=== PATIENT | female | born 1990 | race Caucasian/White ===

== ENCOUNTER 2019-08-22 14:56 | Emergency (ER) | payer OTHER ==
[2019-08-22 15:49] LABS: BILIRUBIN,URINE NEGATIVE (NEGATIVE); GLUCOSE, URINE (UA) NEGATIVE (NEGATIVE); KETONES,URINE (UA) NEGATIVE (NEGATIVE); LEUKOCYTE ESTERASE, URINE NEGATIVE (NEGATIVE); NITRITE,URINE NEGATIVE (NEGATIVE); OCCULT BLOOD,URINE SMALL (NEGATIVE); PH,URINE 7.5 PH (5.0-7.5); PROTEIN,URINE NEGATIVE (NEGATIVE); UROBILINOGEN,URINE 0.2 (NORMAL) E.U./dL (NORMAL)
[2019-08-22 15:52] LABS: CLARITY,URINE CLOUDY (CLEAR)
[2019-08-22 15:59] LABS: AMORPHOUS SEDIMENT,UR Moderate /LPF; BACTERIA,URINE Rare /HPF (None Seen); MUCUS,URINE Few Strands; SQUAMOUS EPITHELIAL CELL,UR MANY Squamous (<= Few)
[2019-08-22 16:15] LABS: BASOPHILS # (AUTO) 0.1 10^3/uL (0.0-0.1); BASOPHILS % (AUTO) 0.3 %; EOSINOPHILS % (AUTO) 0.1 %; HGB - HEMOGLOBIN 12.1 g/dL (12.0-16.0); LYMPHOCYTES % (AUTO) 6.2 %; MEAN CORPUSCULAR HGB CONC 33.8 g/dL (32.0-36.0); MEAN CORPUSCULAR VOLUME 94.7 fL (81.0-99.0); MEAN PLATELET VOLUME 9.6 fL (7.9-10.8); MONOCYTES # (AUTO) 0.8 10^3/uL (0.0-1.0); MONOCYTES % (AUTO) 5.1 %; NEUTROPHILS # (AUTO) 13.5 10^3/uL (1.5-6.6); NEUTROPHILS % (AUTO) 87.8 %; PLT - PLATELET COUNT 153 10^3/uL (130-450); RED BLOOD COUNT 3.78 10^6/uL (4.20-5.40); RED CELL DISTRIBUTION WIDTH 13.6 % (12.0-15.0); WHITE BLOOD COUNT 15.4 x10^3/uL (4.8-10.8)
[2019-08-22 16:44] LABS: ALBUMIN 3.3 g/dL (3.2-5.5); ALBUMIN/GLOBULIN RATIO 1.1 (1.0-2.2); BILIRUBIN,TOTAL 0.4 mg/dL (0.2-1.0); CALCIUM 8.7 mg/dL (8.5-10.3); CREATININE 0.6 mg/dL (0.4-1.0); TOTAL PROTEIN 6.2 g/dL (6.7-8.2)
[2019-08-22] MEDS ORDERED: SODIUM CHLORIDE 0.9% 1,000 ML IV ONE (16:56)
[2019-08-22] MEDS ORDERED: HYDROmorphone 1 MG/ML CARPUJECT IVP STA ×2 (16:56→18:28)
[2019-08-22] MEDS ORDERED: ONDANSETRON 4 MG/2 ML VIAL IVP STA ×2 (16:56→18:28)
--- NOTE | 2019-08-22 16:58 | ED Physician Documentation ---
PD HPI ABD PAIN - Stated complaint Stated Complaint: R SIDE BACK/ABD PX - Chief complaint Chief Complaint: Abd Pain - History obtained from History obtained from: Patient, Family - History of Present Illness Timing - onset: Enter time (1030), Today Timing - duration: Hours Timing - details: Abrupt onset, Still present Quality: Aching, Sharp, Pain Location: RUQ Radiation: Right flank Improved by: Other (nothing) Worsened by: Other (nothing) Associated symptoms: Nausea. No: Fever, Vomiting, Diarrhea, Constipation Similar symptoms before: Has not had sx before Recently seen: Other - Additional information Additional information: 28-year-old female who is 31 weeks has developed acute right flank pain radiating into her abdomen at about 1030 this morning. She has no modifying factors for this pain she is not able to make it better or worse. She has been over to the obstetrical department for monitoring and is now brought to the emergency department for further evaluation and treatment. She has never had kidney stone previously that she is aware of. The remainder of the has gone well. Review of Systems Constitutional: denies: Fever Eyes: denies: Decreased vision Ears: denies: Ear pain Nose: denies: Congestion Throat: denies: Sore throat Cardiac: denies: Chest pain / pressure, Palpitations Respiratory: denies: Dyspnea, Cough GI: reports: Abdominal Pain, Nausea. denies: Vomiting, Constipation, Diarrhea : denies: Dysuria, Frequency Skin: denies: Rash Musculoskeletal: denies: Neck pain, Back pain Neurologic: denies: Generalized weakness, Focal weakness, Numbness PD PAST MEDICAL HISTORY - Present Medications Home Medications: Ambulatory Orders Medication Instructions Recorded Confirmed Ondansetron Odt [Zofran] 4 mg TL Q6H PRN #10 tablet 08/22/19 Oxycodone HCl/Acetaminophen 1 - 2 each PO Q6H PRN #14 tablet 08/22/19 [Percocet 5-325 mg Tablet] - Allergies Allergies/Adverse Reactions: Allergies Allergy/AdvReac Type Severity Reaction Status Date / Time No Known Drug Allergies Allergy Verified 08/22/19 15:09 PD ED PE NORMAL - Vitals Vital signs reviewed: Yes (Wide pulse pressure) - General General: Alert and oriented X 3, Well developed/nourished, Other (The patient appears to be in pain with meat seafood associate tone and flattened affect.) - HEENT HEENT: Atraumatic, PERRL, EOMI - Neck Neck: Supple, no meningeal sign - Cardiac Cardiac: RRR, No murmur - Respiratory Respiratory: No respiratory distress, Clear bilaterally - Abdomen Abdomen: Other (Gravid uterus is nontender. There is no specific tenderness to the flank or abdomen.) - Back Back: No CVA TTP, No spinal TTP - Derm Derm: Normal color, Warm and dry, No rash - Extremities Extremities: No deformity, No edema, No calf tenderness / cord - Neuro Neuro: Alert and oriented X 3, obstetrics tech 2-12 intact, No motor deficit, No sensory deficit, Normal speech Eye Opening: Spontaneous Motor: Obeys Commands Verbal: Oriented GCS Score: 15 - Psych Psych: Normal mood Results - Vitals Vitals: Vital Signs - 24 hr 08/22/19 08/22/19 15:07 15:09 Temperature 36.9 C 36.6 C Heart Rate 80 97 Respiratory 19 18 Rate Blood Pressure 122/59 L 107/63 O2 Saturation 100 100 Oxygen O2 Source Room air - Labs Labs: Laboratory Tests 08/22/19 08/22/19 08/22/19 15:20 16:10 16:10 WBC 15.4 H RBC 3.78 L Hgb 12.1 Hct 35.8 L MCV 94.7 MCH 32.0 H MCHC 33.8 RDW 13.6 Plt Count 153 MPV 9.6 Neut # (Auto) 13.5 H Lymph # (Auto) 1.0 L [place] # (Auto) 0.8 Eos # (Auto) 0.0 Baso # (Auto) 0.1 Absolute Nucleated RBC 0.00 Nucleated RBC % 0.0 Sodium 137 Potassium 3.7 Chloride 105 Carbon Dioxide 22 Anion Gap 10.0 BUN 11 Creatinine 0.6 Estimated GFR (MDRD) 118 Glucose 106 H Calcium 8.7 Total Bilirubin 0.4 AST 18 ALT 14 Alkaline Phosphatase 51 Total Protein 6.2 L Albumin 3.3 Globulin 2.9 Albumin/Globulin Ratio 1.1 Lipase 25 Urine Color YELLOW Urine Clarity CLOUDY Urine pH 7.5 Ur Specific [place] 1.015 Urine Protein NEGATIVE Urine Glucose (UA) NEGATIVE Urine Ketones NEGATIVE Urine Occult Blood SMALL H Urine Nitrite NEGATIVE Urine Bilirubin NEGATIVE Urine Urobilinogen 0.2 (NORMAL) Ur Leukocyte Esterase NEGATIVE Urine RBC 6-10 H Urine WBC 4-5 Ur Squamous Epith Cells MANY Squamous H Amorphous Sediment Moderate Urine Bacteria Rare Urine Mucus Few Strands Ur Microscopic Review INDICATED Urine Culture Comments NOT INDICATED Procedures - Bedside sono Bedside sono by EMP: With these bedside ultrasound the right kidney is imaged there is obvious and impressive hydronephrosis present. The kidney is sonographically nontender there is no perinephric fluid. PD MEDICAL DECISION MAKING - ED course Complexity details: reviewed results, re-evaluated patient, considered differential, d/w patient, d/w family ED course: 28-year-old female with signs and symptoms consistent with acute ureteral lithiasis arrives to the emergency department in pain and she has some obvious and impressive hydronephrosis on bedside ultrasound exam. She is administered a liter of saline a milligram of Dilaudid and 4 mg of Zofran intravenously. The obstetrical unit has done some monitoring and they are requesting we do a transvaginal ultrasound measurement of the cervical length. Departure - Departure Disposition: 01 Home, Self Care Clinical Impression: Ureterolithiasis Condition: Stable Instructions: ED Stone Renal W Colic Follow-Up: Nathan Reyes MD [Physician No Access] - Prescriptions: Ondansetron Odt [Zofran] 4 mg TL Q6H PRN #10 tablet PRN Reason: Nausea / Vomiting Oxycodone HCl/Acetaminophen [Percocet 5-325 mg Tablet] 1 - 2 each PO Q6H PRN #14 tablet PRN Reason: pain
[2019-08-22 18:44] VITALS: BP 118/79
== END 2019-08-22 18:50 | disposition home or self-care (01) ==
LOC: ED 14:56
DX: O99.89 Other specified diseases and conditions complicating pregnancy, childbirth and the puerperium (principal); N13.2 Hydronephrosis with renal and ureteral calculous obstruction; Z3A.00 Weeks of gestation of pregnancy not specified
CPT/HCPCS: 36415; 80053; 81001; 83690; 85025; 96361; 96374; 96376; 99284; J1170; 81003; 87086

== ENCOUNTER 2019-11-27 08:00 | Outpatient (CLI) | payer OTHER ==
[2019-11-27 21:49] LABS: TRICHOMONAS VAGINALIS DNA NEGATIVE (NEGATIVE)
== END 2019-11-27 23:59 | disposition home or self-care (01) ==
LOC: LAB.R 08:00
PROVIDERS: ATTEND Obstetrics & Gynecology
DX: Z36.85 Encounter for antenatal screening for Streptococcus B (principal)
CPT/HCPCS: 87491; 87591; 87661; 87797

== ENCOUNTER 2019-12-19 05:25 | Inpatient (IN) | payer OTHER ==
[2019-12-19] MEDS ORDERED: ceFAZolin 2 GM in SODIUM CHLORIDE 0.9% 100ML 100 ML IV ONE (06:22)
[2019-12-19] MEDS ORDERED: ACETAMINOPHEN 1,000 MG/100 ML 100 ML IV ONE ×2 (06:30→14:27)
[2019-12-19] MEDS ORDERED: LACTATED RINGERS 1,000 ML IV SCH ×2 (07:00→17:00)
[2019-12-19] MEDS: SODIUM CHLORIDE FLUSH 0.9% 10 ML SYRINGE IVP PRN ×2 (07:50→20:19)
[2019-12-19 08:38] LABS: BASOPHILS % (AUTO) 0.4 %; EOSINOPHILS % (AUTO) 0.2 %; HGB - HEMOGLOBIN 12.7 g/dL (12.0-16.0); LYMPHOCYTES # (AUTO) 1.5 10^3/uL (1.5-3.5); LYMPHOCYTES % (AUTO) 14.2 %; MEAN CORPUSCULAR HEMOGLOBIN 33.1 pg (27.0-31.0); MEAN CORPUSCULAR HGB CONC 35.1 g/dL (32.0-36.0); MEAN CORPUSCULAR VOLUME 94.3 fL (81.0-99.0); MEAN PLATELET VOLUME 11.6 fL (7.9-10.8); MONOCYTES # (AUTO) 0.8 10^3/uL (0.0-1.0); MONOCYTES % (AUTO) 7.2 %; PLT - PLATELET COUNT 141 10^3/uL (130-450); RED BLOOD COUNT 3.84 10^6/uL (4.20-5.40); RED CELL DISTRIBUTION WIDTH 13.8 % (12.0-15.0); WHITE BLOOD COUNT 10.4 x10^3/uL (4.8-10.8)
--- NOTE | 2019-12-19 13:25 | ANESTHESIA ---
Pre-Anesthesia VS, & Labs - Diagnosis previous c/s, desires sterilization - Procedure repeat c/s with bilateral salpingectomies Vital Signs: Temp Pulse Resp BP Pulse Ox 36.7 C 72 18 122/85 H 12/19/19 08:08 12/19/19 08:08 12/19/19 08:08 12/19/19 08:08 Height 5 ft 1 in Weight (kg) 67.585 kg Body Mass Index 23.0 - NPO Last Food Intake: 399 - Is Patient ?: Yes - Lab Results Current Lab Results: Laboratory Tests 12/19/19 09:15: Blood Type Recheck A POSITIVE 12/19/19 07:50: Blood Type A POSITIVE, Antibody Screen NEGATIVE 12/19/19 07:50: WBC 10.4, RBC 3.84 L, Hgb 12.7, Hct 36.2 L, MCV 94.3, MCH 33.1 H , MCHC 35.1, RDW 13.8, Plt Count 141, MPV 11.6 H, Neut # (Auto) 8.0 H, Lymph # (Auto) 1.5, [place] # (Auto) 0.8, Eos # (Auto) 0.0, Baso # (Auto) 0.0, Absolute Nucleated RBC 0.00, Nucleated RBC % 0.0 Fish Bones: 12/19/19 07:50 Home Medications and Allergies Active Medications Lactated Ringer's (Lr) 1,000 mls @ 150 mls/hr IV .Q6H40M CONTRERAS Last Admin: 12/19/19 08:00 Dose: 150 mls/hr Documented by: Sodium Chloride (Normal Saline Flush 0.9%) 10 ml IVP PRN PRN PRN Reason: NEEDED PER PROVIDER ORDERS Last Admin: 12/19/19 07:50 Dose: 10 ml Documented by: PNV, acyclovir Allergies/Adverse Reactions: Allergies Allergy/AdvReac Type Severity Reaction Status Date / Time No Known Drug Allergies Allergy Verified 08/22/19 15:09 Anes History & Medical History - Anesthetic History Family history of Anesthesia Complications: Denies Family history of Malignant Hyperthermia: Denies - Medical History Cardiovascular: reports: None Pulmonary: reports: None Gastrointestinal: reports: GERD (during preg.) Urinary: reports: Kidney stones (during preg.) Neuro: reports: None Musculoskeletal: reports: None Endocrine/Autoimmune: reports: None Blood Disorders: reports: None Skin: reports: None Smoking Status: Former smoker (quit 3 years ago) Psychosocial: reports: No issues indicated - Obstetrical History : 2 Parity: 1 Events: positive: Genital herpes (treated) Complications: positive: None Exam General: Alert, Oriented x3, Cooperative, No acute distress Dental: WNL Mouth Openin Fingerbreadth Neck Mobility: Normal Mallampati classification: II Thyromental Distance: 4-6 cm Respiratory: Lungs clear, Normal breath sounds, No respiratory distress, No accessory muscle use Cardiovascular: Regular rate, Normal S1, Normal S2, No murmurs Mental/Cognitive Status: Alert/Oriented X3, Normal for patient Plan Anesthesia Type: Spinal Consent for Procedure(s) Verified and Reviewed: Yes Code Status: Attempt Resuscitation ASA classification: 2-Mild systemic disease Is this case an emergency?: No
[2019-12-19] MEDS ORDERED: LIDOCAINE 1%-EPI 1:100000 20 ML MDV ONE (14:26)
[2019-12-19] MEDS ORDERED: fentaNYL 100 MCG/2 ML VIAL EPI ONE (14:27)
[2019-12-19] MEDS ORDERED: PHENYLEPHRINE 10 MG/ML VIAL IV ONE (14:27)
[2019-12-19] MEDS ORDERED: KETOROLAC 30 MG/ML VIAL IVP ONE (14:27)
[2019-12-19] MEDS ORDERED: MORPHINE PF 10 MG/10 ML AMP EPI ONE (14:27)
[2019-12-19] MEDS ORDERED: TRANEXAMIC ACID 1,000 MG/10 ML VIAL IV ONE (14:27)
--- NOTE | 2019-12-19 14:29 | HISTORY & PHYSICAL EXAMINATION ---
Admit History - Visit Reason Visit Reason: Other (Repeat ) - : 2 Parity: 1 Risk/History: positive: None Complications This : positive: None Smoking Status: Former smoker (quit 3 years ago) - Mother's Labs Mother's Blood Type: positive: A Mother's RH: positive: Positive GBS: positive: Group B Strep Positive Rubella Status: positive: Immune - Other Maternal History Other Maternal History: 29 yo at 39w3d here for repeat CS and BTL. Signed [facility] consents in advance of 30 days on 09/28/19 DATING : US on 05/19/2020 at 8w5d gives VÍCTOR 12/23/2019--> not cwd Def dating 12/23/2019 Girl- Angela A pos/ Rub imm IS neg FAS 82%ile, posterior, 3VC Glucola 127 HCT 33.2 HSV: needs ppx at 36 wga TDap complete FLu complete Pap 05/18/19 Breast pump Rx provided GBS pos Desires rLTCS Desires BTL: signed [facility] consents 09/28/19 Meds/Allgy - Home Medications Home Medications: Ambulatory Orders Medication Instructions Recorded Confirmed Ondansetron Odt [Zofran] 4 mg TL Q6H PRN #10 tablet 08/22/19 Oxycodone HCl/Acetaminophen 1 - 2 each PO Q6H PRN #14 tablet 08/22/19 [Percocet 5-325 mg Tablet] - Allergies Allergies/Adverse Reactions: Allergies Allergy/AdvReac Type Severity Reaction Status Date / Time No Known Drug Allergies Allergy Verified 08/22/19 15:09 Review of Systems - Other Findings Other Findings: As per HPI, otherwise remaining systems are negative. Physical - Abdominal Exam Vital Signs: Temp Pulse Resp BP Pulse Ox 98.1 F 72 18 122/85 H 12/19/19 08:08 12/19/19 08:08 12/19/19 08:08 12/19/19 08:08 Contraction Frequency (min/apart): intermittent Contraction Intensity: positive: Mild - Monitoring Heart Rate Baseline: 135 mod viktoriya 15x15 accels no decels Strip Review: positive: Category I - Presentation Presentation: positive: Vertex - Vaginal Exam Membranes: positive: Membranes intact Plan for Labor - Plan For Labor Plan for Labor: 29 yo at 39w3d here for scheduled repeat CS and BTL Confirmed desire for repeat CS Reviewed R/B/A to procedure and written informed consent was obtained Delay in procedure due to oral intake this am COVID negative in last 72 hours Cefazolin 2 g IV OCTOR Anticipate admission to in-patient care Rh pos/Rub imm
[2019-12-19] MEDS ORDERED: LACTATED RINGERS 1,000 ML IV ONE (14:54)
[2019-12-19] MEDS ORDERED: LIDOCAINE 1%-EPI 1:100000 20 ML MDV SUBQ ONE ×2 (14:59)
[2019-12-19] MEDS ORDERED: ONDANSETRON 4 MG/2 ML VIAL IVP PRN (16:50)
[2019-12-19] MEDS ORDERED: ONDANSETRON ODT 4 MG TABLET TL PRN (16:50)
[2019-12-19] MEDS ORDERED: SODIUM CHLORIDE FLUSH 0.9% 10 ML SYRINGE IVP PRN (16:50)
--- NOTE | 2019-12-19 16:55 | OPERATIVE REPORT ---
Operative Report - General Admit Date: 12/19/19 Procedure Date: 12/19/19 Planned Procedure: Repeat low transverse and bilateral salpingectomy Pre-Op Diagnosis: IUP at 39+3 wga, hx of prior , desires sterilization Procedure Performed: Low transverse bilateral salpingectomy Post Op Diagnosis: Same and delivery of term gestation - Procedure Note Primary Surgeon: Harmony Gaviria MD Secondary Surgeon: Beatriz Mac CNM Anesthesia Provider: Ashley Rees CRNA Anesthesia Technique: Spinal Pathology: Bilateral fallopian tubes to pathology Routine discard of placenta IV Fluids (mL): 600 Estimated Blood Loss (mL): 700 Urine Output (mL): 100 Indications: Patient is a 29-year-old G2, P1 at 39+3 weeks estimated gestational age here for repeat and sterilization via bilateral salpingectomy. Findings: Female infant in vertex presentation with tight nuchal cord x3. Weight and Apgars are pending. Normal uterus, tubes, and ovaries. Extension on right lateral aspect of the uterine incision, repaired. Complications: None - Other Other Information/Narrative: Risks benefits and alternatives of the procedure were discussed. Written informed consent was obtained. Patient was taken to the operating room where spinal anesthesia was placed and found to be adequate. She was prepped and draped in the usual sterile fashion in the dorsal supine position with a leftward tilt. Dean catheter was in place. SCDs were in place and activated. Cefazolin 2 g IV was given as a preoperative antibiotic. Preoperative timeout was performed. A Pfannenstiel incision was made in the skin with a scalpel and carried through the underlying layer of fascia in a combination of sharp and blunt dissection. The fascia was incised in the midline, and the incision was extended laterally with the Razo scissors. The superior aspect of the fascial incision was grasped with the Josh clamps, elevated, and the underlying rectus muscles were dissected off bluntly and sharply using the Razo scissors. Attention was then turned to the inferior aspect of the incision which in a similar fashion was grasped, tented up with Josh clamps, and the underlying rectus muscles dissected off bluntly and sharply using Razo scissors. The rectus muscles were then in the midline. The peritoneum was identified, tented up, and entered bluntly. The peritoneal incision was extended superiorly and inferiorly with good visualization of the bladder. The bladder that blade was then inserted. A bladder flap was not created. The lower uterine segment of the uterus was identified, and incised in a transverse fashion with a scalpel. The uterus was entered bluntly. The uterine incision was extended in a craniocaudal fashion by manual stretch. The bladder blade was removed. The was delivered from from vertex position. Triple nuchal cord was reduced once infant head was delivered while body remained in utero. Baby was wrapped in a warm sterile towel. Delayed cord clamping was performed. After cessation of pulsations, the cord was clamped x2 and cut. The infant was handed off to the waiting pediatricians. The placenta was removed with manual expression. The uterus was exteriorized and cleared of all clots clots and debris via manual swipe using [employer] x2. The uterine incision was then repaired in a running locked fashion using 0 Vicryl suture. The incision was reinforced with a running imbricating layer again using 0-Vicryl suture. A right sided extension of the hysterotomy was noted prior to closure of the hysterotomy. Care was taken to close the extension while manually retracting ureter and vessels from area of repair. Excellent hemostasis was obtained. Attention was then turned to the salpingectomy. The left fallopian tube was grasped with [place] clamps and elevated. A Ligasure device was used to seal and transect the underlying mesosalpinx along the length of the tube to its insertion into the cornua. The Ligasure was then used to seal and transect the tube at its insertion point on the uterine cornua. Good hemostasis was noted. The procedure was reported on the right side in the same manner. Again, good hemostasis was noted. Fallopian tubes were removed from the field and sent to Pathology for review. The uterus was returned to the abdomen. The gutters were cleared of all clots and debris. The pelvis was irrigated with warm normal saline. The uterine defect was well visualized in normal anatomic position it was noted again to be hemostatic. The peritoneum was then reapproximated with 2-0 Vicryl in a running fashion. The rectus muscles were then reapproximated using interrupted [id number] sutures using 2-0 Chromic. Good hemostasis was noted. The fascia was then closed using 0 Vicryl in a running fashion starting from the left lateral edge to the midline. A second suture was used to close the fascia in a running fashion starting from the right lateral edge and meeting in the midline, again using 0-Vicryl. The subcutaneous tissue was then irrigated and closed using 2-0 chromic in a running subcutaneous suture. Skin was closed in a running subcuticular suture using 4-0 Monocryl. A total of 20 cc of 1% lidocaine with epinephrine was injected into the suture line. Patient has generalized oozing from surgical surfaces and tranexamic acid was given although EBL was appropriate. Steri-Strips were applied to reinforce the incsion and dressing was applied. Procedure was well-tolerated and without complication. Sponge lap and needle counts were correct x2. Patient was taken to recovery room in stable condition. Beatriz Mac CNM, assisted with retraction and delivery of the .
[2019-12-19] MEDS ORDERED: SODIUM CHLORIDE FLUSH 0.9% 10 ML SYRINGE IVP SCH (17:00)
[2019-12-19] MEDS ORDERED: OXYTOCIN/SODIUM CHLORIDE 500 ML IV ONE (17:20)
[2019-12-19] MEDS ORDERED: OXYTOCIN/SODIUM CHLORIDE 500 ML IV PRN (18:05)
[2019-12-19] MEDS: KETOROLAC 30 MG/ML VIAL IVP SCH ×2 (20:18→20:29)
[2019-12-20] MEDS: DOCUSATE SODIUM 100 MG CAPSULE PO SCH ×3 (00:35→20:32)
[2019-12-20] MEDS: ACETAMINOPHEN 500 MG TABLET PO SCH ×4 (00:35→16:36)
[2019-12-20] MEDS: KETOROLAC 30 MG/ML VIAL IVP SCH ×3 (02:38→14:36)
[2019-12-20] MEDS: SODIUM CHLORIDE FLUSH 0.9% 10 ML SYRINGE IVP PRN (02:39)
[2019-12-20 06:03] LABS: BASOPHILS % (AUTO) 0.4 %; EOSINOPHILS % (AUTO) 0.3 %; LYMPHOCYTES # (AUTO) 1.2 10^3/uL (1.5-3.5); LYMPHOCYTES % (AUTO) 11.6 %; MEAN CORPUSCULAR HEMOGLOBIN 33.5 pg (27.0-31.0); MEAN CORPUSCULAR HGB CONC 35.5 g/dL (32.0-36.0); MEAN CORPUSCULAR VOLUME 94.5 fL (81.0-99.0); MEAN PLATELET VOLUME 11.3 fL (7.9-10.8); MONOCYTES # (AUTO) 0.6 10^3/uL (0.0-1.0); MONOCYTES % (AUTO) 6.2 %; NEUTROPHILS # (AUTO) 8.1 10^3/uL (1.5-6.6); NEUTROPHILS % (AUTO) 80.8 %; PLT - PLATELET COUNT 126 10^3/uL (130-450); RED BLOOD COUNT 3.28 10^6/uL (4.20-5.40); RED CELL DISTRIBUTION WIDTH 13.4 % (12.0-15.0); WHITE BLOOD COUNT 10.1 x10^3/uL (4.8-10.8)
[2019-12-20] MEDS: SIMETHICONE CHEW 80 MG TABLET PO SCH ×4 (08:33→18:09)
--- NOTE | 2019-12-20 12:17 | PROVIDER PROGRESS NOTE ---
Subjective - Subjective Subjective: POD 1 Feeling well. Ambulating, jorden reg diet, voiding. Scant lochia. Pain well cont rolled. VSS afeb H&H 31.0/11.0 Abd soft, non-tender. Fundus firm at umbilicus. Dressing D&I without erythema or induration. Small area of dark blood stain at left margin. No evidence of new or active bleeding. A/P Stable. Continue routine postop care. Plan DC tomorrow. Objective - Vital Signs/Intake & Output Vital Signs: Vital Signs x48h Temp Pulse Resp BP Pulse Ox 12/20/19 07:57 98.1 F 70 16 116/48 L 99 12/20/19 05:00 75 16 100 Intake & Output: Intake & Output 12/17/19 12/18/19 12/19/19 12/20/19 23:59 23:59 23:59 23:59 Intake Total 100 1750 Output Total 130 2755 Balance -30 -1005 - Lab Results Fish Bones: 12/20/19 05:55 Other Labs: Lab Results x24hrs 12/20/19 Range/Units 05:55 WBC 10.1 (4.8-10.8) x10^3/uL RBC 3.28 L (4.20-5.40) 10^6/uL Hgb 11.0 L (12.0-16.0) g/dL Hct 31.0 L (37.0-47.0) % MCV 94.5 (81.0-99.0) fL MCH 33.5 H (27.0-31.0) pg MCHC 35.5 (32.0-36.0) g/dL RDW 13.4 (12.0-15.0) % Plt Count 126 L (130-450) 10^3/uL MPV 11.3 H (7.9-10.8) fL Neut # (Auto) 8.1 H (1.5-6.6) 10^3/uL Lymph # (Auto) 1.2 L (1.5-3.5) 10^3/uL [place] # (Auto) 0.6 (0.0-1.0) 10^3/uL Eos # (Auto) 0.0 (0.0-0.7) 10^3/uL Baso # (Auto) 0.0 (0.0-0.1) 10^3/uL Absolute Nucleated RBC 0.00 x10^3/uL Nucleated RBC % 0.0 /100WBC
--- NOTE | 2019-12-20 13:00 | PROVIDER PROGRESS NOTE ---
Subjective - Prog Note Date Prog Note Date: 12/20/19 Prog Note Time: 12:24 - Subjective Subjective: Patient is doing remarkably well. BF is going well. Pain well controlled without use of narcotics. Up and ambulating, tolerating po. Voiding. Objective - Vital Signs/Intake & Output Reviewed Vital Signs: Yes Vital Signs: Vital Signs x48h Temp Pulse Resp BP Pulse Ox 12/20/19 12:26 97.9 F 80 18 110/59 L 98 12/20/19 07:57 98.1 F 70 16 116/48 L 99 12/20/19 05:00 75 16 100 Intake & Output: Intake & Output 12/17/19 12/18/19 12/19/19 12/20/19 23:59 23:59 23:59 23:59 Intake Total 100 1750 Output Total 130 2755 Balance -30 -1005 - Objective General Appearance: positive: No acute distress Respiratory: positive: No respiratory distress, Breath sounds nml Cardiovascular: positive: Regular rate & rhythm Abdomen: positive: Non-tender, Other (FF below umbi.) Skin: positive: Color nml Extremities: positive: Non-tender, Nml appearance Neurologic/Psychiatric: positive: Oriented x3 - Lab Results Fish Bones: 12/20/19 05:55 Other Labs: Lab Results x24hrs 12/20/19 Range/Units 05:55 WBC 10.1 (4.8-10.8) x10^3/uL RBC 3.28 L (4.20-5.40) 10^6/uL Hgb 11.0 L (12.0-16.0) g/dL Hct 31.0 L (37.0-47.0) % MCV 94.5 (81.0-99.0) fL MCH 33.5 H (27.0-31.0) pg MCHC 35.5 (32.0-36.0) g/dL RDW 13.4 (12.0-15.0) % Plt Count 126 L (130-450) 10^3/uL MPV 11.3 H (7.9-10.8) fL Neut # (Auto) 8.1 H (1.5-6.6) 10^3/uL Lymph # (Auto) 1.2 L (1.5-3.5) 10^3/uL [place] # (Auto) 0.6 (0.0-1.0) 10^3/uL Eos # (Auto) 0.0 (0.0-0.7) 10^3/uL Baso # (Auto) 0.0 (0.0-0.1) 10^3/uL Absolute Nucleated RBC 0.00 x10^3/uL Nucleated RBC % 0.0 /100WBC Assessment/Plan - Problem List (1) delivery delivered Impression: POD#1: -Doing well postop -Up and ambulating -Tolerating po -Voiding -Bleeding well controlled -BF going well Anticipate DC home in the am Will remove dressing in am Reviewed DC instructions and aftercare DC meds placed on chart Rh pos
[2019-12-20] MEDS: oxyCODONE 5 MG TABLET PO PRN ×2 (13:47→18:09)
[2019-12-20] MEDS: IBUPROFEN 600 MG TABLET PO SCH (20:32)
[2019-12-20] MEDS ORDERED: HYDROCORTISONE 1% CREAM 28 GM TUBE TOP SCH (21:00)
[2019-12-21] MEDS: ACETAMINOPHEN 500 MG TABLET PO SCH ×2 (00:19→08:34)
[2019-12-21] MEDS: oxyCODONE 5 MG TABLET PO PRN ×3 (00:20→08:48)
[2019-12-21] MEDS: IBUPROFEN 600 MG TABLET PO SCH ×2 (04:15→10:26)
--- NOTE | 2019-12-21 06:17 | PROVIDER PROGRESS NOTE ---
Subjective - Prog Note Date Prog Note Date: 12/21/19 Prog Note Time: 06:14 - Subjective Subjective: POD 2 Feeling very well. Ambulating, voiding, tolerating reg diet. Minimal lochia. Had concern about BM; longstanding chronic intermittent constipation and abnormal stool. going well. S/P salpingectomy for contraception. VSS afeb Abd soft, non-tender. Fundus firm just below umbilicus. Incision D&I, dressing in place. No erythema or induration. Ext without edema A/P Stable. Planning DC home today. F/U scheduled on 12/26. Objective - Vital Signs/Intake & Output Vital Signs: Vital Signs x48h Temp Pulse Resp BP Pulse Ox 12/21/19 04:05 97.3 F L 99 18 125/74 100 12/21/19 00:23 98.1 F 97 16 110/68 98 Intake & Output: Intake & Output 12/18/19 12/19/19 12/20/19 12/21/19 23:59 23:59 23:59 23:59 Intake Total 100 1750 Output Total 130 2755 Balance -30 -1007 - Lab Results Fish Bones: 12/20/19 05:55
[2019-12-21 08:21] VITALS: BP 122/86
[2019-12-21] MEDS: SIMETHICONE CHEW 80 MG TABLET PO SCH (08:34)
[2019-12-21] MEDS: DOCUSATE SODIUM 100 MG CAPSULE PO SCH (08:34)
--- NOTE | 2019-12-21 10:13 | Discharge Plan ---
Discharge Plan Problem Reviewed?: Yes Disposition: Home, Self Care Condition: Good Diet: Regular Activity Restrictions: Additional Comments (No heavy lifting >10 pounds) Shower Restrictions: No No Smoking: If you smoke, Please STOP! Call for help. Follow-up with: Patricia Marcos MD [Primary Care Provider] -
--- NOTE | 2019-12-21 10:18 | DISCHARGE SUMMARY ---
"Discharge Summary Admit Date: 12/19/19 Discharge Date: 12/21/19 Discharging Provider: Leslie Reeder Code Status: Attempt Resuscitation Condition at Discharge: Good Discharge Disposition: 01 Home, Self Care - DIAGNOSES Admission Diagnoses: at 39w3d Previous Undesired fertility - HPI History of Present Illness: 29yo now P2 at 39w3d by LMP c/w first trimester US presented for scheduled repeat and bilateral salpingectomy - CONSULTS | PROCEDURES Procedures: Repeat LTCS and bilateral salpingectomy - HOSPITAL COURSE Hospital Course: Pt was brought to the operating room where she underwent uncomplicated repeat LTCS and bilateral salpingectomy. She was delivered of a 3833gm female infant apgars 9/9 on 12/18. EBL was 700cc. Postop H&H was 11.0/31.0. Her postop course was uncomplicated. She had minimal lochia, was ambulating, tolerating a regular diet, voiding and well. Her incision was noted to be healing well without evidence of infection. F/U will be in one week for wound check. - ALLERGIES Allergies/Adverse Reactions: Allergies Allergy/AdvReac Type Severity Reaction Status Date / Time No Known Drug Allergies Allergy Verified 08/22/19 15:09 - MEDICATIONS Home Medications: Ambulatory Orders Medication Instructions Recorded Confirmed Ondansetron Odt [Zofran] 4 mg TL Q6H PRN #10 tablet 08/22/19 Oxycodone HCl/Acetaminophen 1 - 2 each PO Q6H PRN #14 tablet 08/22/19 [Percocet 5-325 mg Tablet] - PHYSICAL EXAM AT DISCHARGE General Appearance: positive: No acute distress, Alert Respiratory: positive: No respiratory distress Cardiovascular: positive: Regular rate & rhythm Abdomen: positive: Non-tender, No distention (Fundus just below umbilicus, firm. Dressing D&I without erythema or induration) - LABS Result Diagrams: 12/20/19 05:55"
--- NOTE | 2019-12-21 10:59 | Labor Flowsheet ---
Labor Flowsheet Datetime Report Generated by CPN: 12/21/2019 10:59 Datetime: 12/19/2019 21:00 VAGINAL EXAM Membranes Ruptured Date/Time: 12/19/2019 15:15 Membranes Rupture Method: Artificial Datetime: 12/19/2019 12:27 UTERINE ACTIVITY Monitor Mode: External Frequency (min): irregular Quality: Mild Duration (sec): 70-80 Pattern: Normal: <= 5 Contractions in 10 Minutes Resting Tone (Palpate): Relaxed Contraction Comments: pt. states "I can barely feel them." ASSESSMENT A Monitor Mode: External US FHR Baseline Rate : 130 Variability: Moderate 6-25 bpm Accelerations: 15X15 Decelerations: None Category: Category I Datetime: 12/19/2019 12:04 Stage of : Labor PATIENT CARE Patient Position/Activity: High Fowlers Datetime: 12/19/2019 08:26 VITAL SIGNS NBP Sys/Krista/Mean (mmHg): 122 : 85 : 93 Pulse: 72
== END 2019-12-21 10:49 | disposition home or self-care (01) | DRG 785 ==
LOC: FBP 05:25
PROVIDERS: ADMIT Obstetrics & Gynecology; ATTEND Obstetrics & Gynecology
PROC: 0UT70ZZ Resection of Bilateral Fallopian Tubes, Open Approach (ICD-10-PCS; 2019-12-19)
PROC: 10D00Z1 Extraction of Products of Conception, Low, Open Approach (ICD-10-PCS; principal; 2019-12-19 08:30)
DX: O34.211 Maternal care for low transverse scar from previous cesarean delivery (principal); O69.1XX0 Labor and delivery complicated by cord around neck, with compression, not applicable or unspecified; O99.824 Streptococcus B carrier state complicating childbirth; Z37.0 Single live birth; Z30.2 Encounter for sterilization; Z3A.39 39 weeks gestation of pregnancy; Z87.891 Personal history of nicotine dependence
CPT/HCPCS: 36415; 85025; 86850; 86900; 86901; A9270; J0131; J2274; J7120

== ENCOUNTER 2023-06-21 08:00 | Outpatient (CLI) | payer OTHER ==
[2023-06-22 15:18] LABS: BACTERIAL VAGINOSIS DNA POSITIVE (NEGATIVE); CANDIDA GLABRATA DNA NEGATIVE (NEGATIVE); CANDIDA GROUP DNA NEGATIVE (NEGATIVE); CANDIDA KRUSEI DNA NEGATIVE (NEGATIVE); TRICHOMONAS VAGINALIS DNA NEGATIVE (NEGATIVE)
== END 2023-06-21 23:59 | disposition home or self-care (01) ==
LOC: LAB 08:00
PROVIDERS: ATTEND Physician Assistant Medical
DX: L29.2 Pruritus vulvae (principal)
CPT/HCPCS: 81514

== ENCOUNTER 2023-10-12 10:35 | Outpatient (CLI) | payer OTHER ==
[2023-10-12 23:16] LABS: CHLAMYDIA TRACHOMATIS DNA NEGATIVE (NEGATIVE); NEISSERIA GONORRHOEAE DNA NEGATIVE (NEGATIVE)
[2023-10-13 01:43] LABS: BACTERIAL VAGINOSIS DNA POSITIVE (NEGATIVE); CANDIDA GLABRATA DNA NEGATIVE (NEGATIVE); CANDIDA GROUP DNA NEGATIVE (NEGATIVE); CANDIDA KRUSEI DNA NEGATIVE (NEGATIVE); TRICHOMONAS VAGINALIS DNA NEGATIVE (NEGATIVE)
== END 2023-10-12 13:47 | disposition home or self-care (01) ==
LOC: LAB.N 10:35
PROVIDERS: ATTEND Registered Nurse
DX: N89.8 Other specified noninflammatory disorders of vagina (principal); R30.0 Dysuria
CPT/HCPCS: 81514; 87086; 87491; 87591; 87661

== ENCOUNTER 2023-10-21 09:00 | Outpatient (CLI) | payer OTHER ==
[2023-10-21 15:49] LABS: BACTERIAL VAGINOSIS DNA NEGATIVE (NEGATIVE); CANDIDA GLABRATA DNA NEGATIVE (NEGATIVE); CANDIDA GROUP DNA NEGATIVE (NEGATIVE); CANDIDA KRUSEI DNA NEGATIVE (NEGATIVE); TRICHOMONAS VAGINALIS DNA NEGATIVE (NEGATIVE)
== END 2023-10-21 09:15 | disposition home or self-care (01) ==
LOC: LAB.N 09:00
PROVIDERS: ATTEND Physician Assistant Medical
DX: N89.8 Other specified noninflammatory disorders of vagina (principal)
CPT/HCPCS: 81514

== ENCOUNTER 2023-10-22 07:17 | Emergency (ER) | payer OTHER ==
--- NOTE | 2023-10-22 07:32 | ED Physician Documentation ---
PD HPI FEMALE - Stated complaint Stated Complaint: ABD PX - Chief complaint Chief Complaint: Abd Pain - History obtained from History obtained from: Patient - History of Present Illness Timing - onset: How many weeks ago (2) Timing - duration: Weeks (2) Timing - details: Gradual onset (onset of pain after retal and vaginal inercourse 2 weeks ago. Vaginal ntecourse since has been painful. Denies pain with defecation nor wiping. Has had some mild vag discharge that hs decreased.) Associated symptoms: Other (LMP about 3 weeks ago). No: Fever, Vaginal bleeding Contributing factors: Sexually active (single partner). No: , control Similar symptoms before: Diagnosis (Dx with BV recently and treated without improvement in pain. Unsure if that was cause.) Recently seen: Clinic (seen walk in about 10 days ago and then again yesterday. Had vaginal test showing BV and was Rx for that from Walk In. Repeat visit yesterday had repeat BV test. Consider US and was to follow up PCP. US not ordered. 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, Tubal ligation - Present Medications Home Medications: Ambulatory Orders Medication Instructions Recorded Confirmed HYDROcod/ACETAM 5/325 [Hay 5/325] 1 ea PO Q6H PRN #14 tablet 10/22/23 Ondansetron Odt [Zofran] 4 mg TL Q6H PRN #10 tablet 10/22/23 - Allergies Allergies/Adverse Reactions: Allergies Allergy/AdvReac Type Severity Reaction Status Date / Time No Known Drug Allergies Allergy Verified 10/22/23 07:28 - Social History Does the pt smoke?: No Smoking Status: Never smoker Does the pt drink ETOH?: Yes Does the pt have substance abuse?: No - Immunizations Immunizations are current?: Yes - POLST Patient has POLST: No PD ED PE NORMAL - Vitals Vital signs reviewed: Yes - General General: Alert and oriented X 3, Well developed/nourished, Other (appears in pain LLQ/pelvic area. ) - Abdomen Abdomen: Normal bowel sounds, Soft, Non distended, No organomegaly, Other (tender ) - Female Female : Deferred - Rectal Rectal: Deferred - Back Back: No CVA TTP - Derm Derm: Normal color, Warm and dry Results - Vitals Vitals: Oxygen O2 Source Room air - Labs Labs: Laboratory Tests 10/22/23 07:44 Urine Color YELLOW Urine Clarity CLEAR Urine pH 6.5 Ur Specific Bulan 1.020 Urine Protein NEGATIVE Urine Glucose (UA) NEGATIVE Urine Ketones NEGATIVE Urine Occult Blood NEGATIVE Urine Nitrite NEGATIVE Urine Bilirubin NEGATIVE Urine Urobilinogen 0.2 (NORMAL) Ur Leukocyte Esterase NEGATIVE Ur Microscopic Review NOT INDICATED Urine Culture Comments NOT INDICATED Urine HCG, Qual NEGATIVE - Rads (name of study) pelvic US Relevant Findings:: Prelim report reviewed, Other (Tech verbal report of simple left ovarian cyst 3 cm without free fluid and it does have normal ovarian blood flow. ) PD Medical Decision Making - ED course Complexity details: reviewed results (Has small ovarian cyst 3 cm. Normal flow to ovary. No other acute findings. Consider possible that cyst is hitting nerve/muscle/etc at times of the worse pain and then hurting otherwise. But is not that large per se. Consider intermittent torsion, though no edema or such around it.), considered differential (no rectal pain nor discharge, nor painful BMs. Does not sound proctitis. Her pain is left pelvic. Consider persistent BV and will check repeat test from yesterday. Get US to eval for other cause. ), d/w patient, d/w healthcare network pricing consultant (phone consult with Dr. Carrillo and to treat with NSAIDs, if just ovarian cyst, then likely will regress with upcoming menses. return precautions if persistent/severe pain c/w torsion. Otherwise f/u if persists. ) Reviewed Lab Results: repeat BV test from yesterday is negative, so apparent clearance with recent abx treatment and thus not sounding like cause of the pain. US showing 3 cm cyst simple. No free fluid. Normal ovarian blood flow. Departure - Departure Disposition: 01 Home, Self Care Clinical Impression: Lower abdominal pain Ovarian cyst Qualifiers: Laterality: left Qualified Code(s): N83.202 - Unspecified ovarian cyst, left side Condition: Stable Record reviewed to determine appropriate education?: Yes Instructions: ED Cyst Ovarian, ED Pelvic Pain [facility] Follow-Up: [facility] [Provider Group] [facility] [Provider Group] Prescriptions: HYDROcod/ACETAM 5/325 [Hay 5/325] 1 ea PO Q6H PRN #14 tablet PRN Reason: Pain Ondansetron Odt [Zofran] 4 mg TL Q6H PRN #10 tablet PRN Reason: Nausea / Vomiting Comments: Your BV test from yesterday came back resulting negative. It does look like that this been cleared. Your ultrasound is showing a simple cyst on the left side which is not too large and commonly would be thought of his unlikely to be symptomatic but at times the cyst can either be irritating or pressing on nerve area or part of the intestine or can be causing impairment of the blood flow to the ovary intermittently. I did talk with the on-call equine manager who said that this point we would treat it regularly with the anti-inflammatories and add Tylenol regularly and pain meds. As you get through your next period, the hormonal effect hopefully will decrease in allow the cyst to go away. However I would follow-up with your either primary care or talk to the referral service and see if you can get a follow-up with gynecology as the concern would be if it continues to hurt significantly, other other interventions if this does not improve it. I did send a prescription for some stronger pain medicine and nausea medicine to [facility] pharmacy for backup on the symptoms. Stay well-hydrated. If you have severe pain that is consistent and unrelieved, certainly return to the ER. My narcotic instructionsI am prescribing a short course of narcotic pain medication for you. These are potentially dangerous and addictive medications that should be used carefully. These medications may constipate you. Take an [id number] stool softener such as docusate twice daily with plenty of water while taking these medications. If you go 24 hours without a bowel movement, take [id number] MiraLAX, per package instructions. Do not drink or drive while taking these medications. If you received narcotic or sedating medications while in the emergency depar tment do not drive for 24 hours. Store this medication in a safe, secure place and out of reach of children. It is a violation of federal law to give or sell this medication to another person or to use in a manner other than prescribed. The ED will not refill narcotic prescriptions, including prescriptions lost or stolen. You can dispose of unwanted medications at the [facility]'s office or at several pharmacies such as [facility]. Forms: PCP List Discharge Date/Time: 10/22/23 10:49
[2023-10-22 07:58] LABS: BILIRUBIN,URINE NEGATIVE (NEGATIVE); GLUCOSE, URINE (UA) NEGATIVE (NEGATIVE); KETONES,URINE (UA) NEGATIVE (NEGATIVE); LEUKOCYTE ESTERASE, URINE NEGATIVE (NEGATIVE); NITRITE,URINE NEGATIVE (NEGATIVE); OCCULT BLOOD,URINE NEGATIVE (NEGATIVE); PH,URINE 6.5 PH (5.0-7.5); PROTEIN,URINE NEGATIVE (NEGATIVE); UROBILINOGEN,URINE 0.2 (NORMAL) E.U./dL (NORMAL)
[2023-10-22 07:59] LABS: CLARITY,URINE CLEAR (CLEAR)
[2023-10-22 08:00] LABS: HCG UR QUAL NEGATIVE
[2023-10-22] MEDS: ACETAMINOPHEN 500 MG TABLET PO STA (08:03)
[2023-10-22 10:02] VITALS: BP 114/77; O2SAT 99
--- NOTE | 2023-10-22 10:07 | Ultrasound Report ---
PROCEDURE: Pelvic w/Transvag+Doppler Comp INDICATIONS: pelvic pain, L TECHNIQUE: Real-time scanning was performed of the pelvic organs, with image documentation. Additional endovagi nal scanning was necessary due to incomplete visualization of the adnexal and endometrial structures by transabdominal scanning. Doppler interrogation was performed of the ovaries bilaterally. COMPARISON: None. FINDINGS: Uterus: Uterus is anteverted and normal in size at 7.1 x 4.1 x 5 cm. The myometrium is homogeneous. The endometrium measures 4 mm in combined thickness. Ovaries: The right ovary measures 2.8 x 1.9 x 2.3 cm, with a calculated ovarian volume of 6 cc. The left ovary measures 4.2 x 2.8 x 3.4 cm, with a calculated ovarian volume of 20 cc. Dominant follicle measuring 3 cm . Appropriate blood flow to the ovaries with Doppler interrogation. Less than 12 fo llicles can be seen in each ovary. No adnexal masses are seen. No cystic lesions measuring greater t awan 3 cm. Other: No pathologic free abdominal or pelvic fluid. IMPRESSION: No torsion. Normal pelvic ultrasound. Reviewed by: Richar Mcallister MD on 10/22/2023 9:05 AM NANCY Approved by: Richar Mcallister MD on 10/22/2023 9:05 AM NANCY Station ID: [id number]
== END 2023-10-22 10:49 | disposition home or self-care (01) ==
LOC: ED 07:17
DX: N83.202 Unspecified ovarian cyst, left side (principal); R10.30 Lower abdominal pain, unspecified
CPT/HCPCS: 76830; 76856; 81003; 81025; 93975; 99284; A9270; 81001; 87086